=== PATIENT | male | born 1965 | race Caucasian/White ===

== ENCOUNTER 2017-09-21 14:20 | Emergency (ER) | payer OTHER ==
[~2017-09-21] VITALS: Ht 177.8 cm; Wt 87.0 kg
[~2017-09-21 14:20] MED LIST: CIAL5TAB PO; MULT-65 PO; OMEG100037 PO; SYMB80AE INH
[2017-09-21 14:22] VITALS: BP 127/82; PULSE 82; RESP 16; TEMP 97.6; O2SAT 95
[2017-09-21] MEDS ORDERED: MAGN500T2 PO (14:35)
[2017-09-21] MEDS ORDERED: ROSU40 PO (14:35)
[2017-09-21] MEDS ORDERED: CALC250T PO (14:35)
[2017-09-21] MEDS ORDERED: VITA500T4 PO (14:35)
[2017-09-21] MEDS ORDERED: VENTAER INH (14:35)
[2017-09-21] MEDS ORDERED: BACT800T5 PO (14:58)
--- NOTE | 2017-09-21 14:58 | PD ---
HPI Chief Complaint: Skin Problem Time Seen by Provider: 14:27 Travel History International Travel<30 days: No Contact w/Intl Traveler<30days: No Traveled to known affect area: No History of Present Illness HPI 56, male with pain and swelling to the right thumb after removing a hangnail 4 days ago. He denies fever or chills. Pain is constant, throbbing, nonradiating. Worse with palpation of the area. No alleviating factors. PFSH Past Medical History High Cholesterol: Yes Diminished Hearing: No Tetanus Vaccination: < 5 Years Influenza Vaccination: Yes Past Surgical History Appendectomy: Yes Eye Surgery: Yes (bilat as infant) Social History Alcohol Use: Yes (OCCASIONAL, weekly ) Tobacco Use: Yes (CIGARS 5 PER DAY) Substance Use: No Allergies-Medications (Allergen,Severity, Reaction): Coded Allergies: codeine (Unverified Allergy, Intermediate, STOMACH PAIN, 09/21/17) aspirin (Unverified Allergy, Mild, stomache ache, 09/21/17) Reported Meds & Prescriptions Reported Meds & Active Scripts Active Bactrim DS (Sulfamethoxazole-Trimethoprim) 800-160 Mg Tab 1 Tab PO BID Reported Calcium Citrate 250 Mg Calcium Tab 250 Mg PO Magnesium Oxide 500 Mg Tab 500 Mg PO DAILY Vitamin B-12 (Cyanocobalamin) 500 Mcg Tab 500 Mcg PO DAILY Ventolin Hfa 18 GM Inh (Albuterol Sulfate) 90 Mcg/Act Aer 2 Puff INH Q6H PRN Crestor (Rosuvastatin Calcium) 40 Mg Tab 40 Mg PO DAILY Review of Systems Except as stated in HPI: all other systems reviewed are Neg Physical Exam Narrative GENERAL: Well-appearing male SKIN: Warm and dry. Erythema noted to the right distal thumb. Purulent drainage at the lateral nail fold. No swelling of the finger. Normal range of motion HEAD: Normocephalic. CARDIOVASCULAR: Regular rate and rhythm without murmurs, gallops, or rubs. RESPIRATORY: Breath sounds equal bilaterally. No accessory muscle use. MUSCULOSKELETAL: No cyanosis, or edema. Data Data Last Documented VS Vital Signs Date Time Temp Pulse Resp B/P (MAP) Pulse Ox O2 Delivery O2 Flow Rate FiO2 09/21/17 14:22 97.6 82 16 127/82 (97) 95 MDM Medical Decision Making Medical Screen Exam Complete: Yes Emergency Medical Condition: Yes Differential Diagnosis Paronychia, abscess, cellulitis Narrative Course 56, male with pain and swelling to the right thumb after removing a hangnail 4 days ago. On exam patient has paronychia. Incision and drainage performed. Patient tolerated procedure well Procedures Procedure Narrative INCISION AND DRAINAGE OF ABSCESS: The area was prepped and was sterilely draped. Ethyl chloride was used to anesthetize the area properly. A number 11 scalpel was used to make a 0.5 -cm incision across the area of the abscess. The abscess was draineD. . Sterile dressing applied. Patient advised to have packing removed in two days. Diagnosis Primary Impression: Paronychia of finger Qualified Codes: L03.011 - Cellulitis of right finger Referrals: Primary Care Physician Additional Instructions: Take the antibiotics as prescribed. Soak the area and warmth absence of several times per day. Keep the area covered with a clean dry dressing. Scripts Sulfamethoxazole-Trimethoprim (Bactrim DS) 800-160 Mg Tab 1 TAB PO BID for Infection, #20 TAB 0 Refills Prov: Chacha Hines 09/21/17 Disposition: 01 DISCHARGE HOME Condition: Stable Chacha Hines Sep 21, 2017 14:58
== END 2017-09-21 15:15 | disposition home or self-care (01) ==
LOC: PHEFT 14:20
DX: L03.011 Cellulitis of right finger (principal)
CPT/HCPCS: 10060